=== PATIENT | female | born 1930 | race Caucasian/White ===

== ENCOUNTER 2020-03-22 08:39 | Observation (INO) | payer MEDICARE ==
[2020-03-22] MEDS ORDERED: Acetaminophen 500 MG TAB ONE (09:15)
--- NOTE | 2020-03-22 09:23 | RAD ---
Exam: Right elbow 2 views: HISTORY: Injury from a fall with pain COMPARISON: None FINDINGS: Diffuse bone demineralization. No evidence for fracture, dislocation, or other significant acute osseous abnormality. IMPRESSION: No significant acute process.
--- NOTE | 2020-03-22 09:33 | RAD ---
RIGHT HIP 2 VIEWS: Date: 03/22/2020 INDICATION: History of fall with right hip pain. COMPARISON: None. 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 No displaced fracture is evident. IMPRESSION: No acute osseous abnormality. POS: BH
--- NOTE | 2020-03-22 09:42 | RAD ---
RIGHT WRIST 3 VIEWS: Date: 03/22/2020 INDICATION: History of fall with right wrist pain. COMPARISON: None. FINDINGS: There is diffuse osteopenia. There is a heavily comminuted interarticular dorsally angulated, dorsall y displaced distal radial fracture. There is a nondisplaced ulnar styloid base fracture. 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 IMPRESSION: Distal both bone right forearm fracture as above. POS: BH
[2020-03-22] MEDS ORDERED: Lidocaine 4% Topical Sol 50 ML BOT ONE (10:41)
[2020-03-22] MEDS ORDERED: Lidocaine 1% (PF) 30 ML VIAL ONE ×2 (10:42→13:18)
[2020-03-22] MEDS ORDERED: Fentanyl 100 MCG/2 ML VIAL ONE ×2 (10:48→11:27)
[2020-03-22] MEDS ORDERED: Midazolam HCl 5 mg/ml Vial ONE (11:20)
--- NOTE | 2020-03-22 12:05 | RAD ---
XR Wrist 3 Rt View STANDARD History: Reduction Comparison: Radiograph same day Findings: Slight improved alignment intra-articular distal radius fracture with lateral displacement of the radial styloid 1 cm. Nondisplaced ulnar styloid fracture. Mild scapholunate widening. There continues to be dorsal displacement 1 cm. Impression: Continued dorsal lateral displacement of the intra-articular distal radius fracture with secondary foreshortening.
[2020-03-22 13:20] LABS: #Basophils 0.1 thou/uL (0.0-0.2); #Eosinphils 0.1 thou/uL (0.0-0.7); #Monocytes 0.9 thou/uL (0.11-0.59); #Neutrophils 7.7 thou/uL (1.40-6.50); %Basophils 0.6 % (0.0-1.0); %Eosinophils 0.7 % (0.0-10.0); %Lymphocytes 31.1 % (21.0-51.0); %Monocytes 7.4 % (0.0-10.0); %Neutrophils 60.2 % (42.0-75.0); Hemoglobin 12.5 g/dL (12.0-16.0); Mean Corpuscular HGB CONC 33.4 g/dL (32.0-36.0); Mean Corpuscular Hemoglobin 31.5 pg (27.0-31.0); Mean Corpuscular Volume 94.6 fL (78.0-98.0); Mean Platelet Volume 7.8 fL (7.4-10.4); Platelet Count 327 thou/uL (130-400); RBC Distribution Width 12.1 % (11.5-14.5); Red Blood Cell (RBC) Count 3.97 mill/uL (4.20-5.40); White Blood Cell (WBC) Count 12.7 thou/uL (4.8-10.8)
[2020-03-22] MEDS ORDERED: Dextrose 5% in Water 1,000 ML IV PRN (13:36)
[2020-03-22] MEDS ORDERED: Dextrose 50% Abboject 50 ML SYRINGE SLOW IVP PRN (13:36)
--- NOTE | 2020-03-22 13:39 | RAD ---
Exam: Chest one view HISTORY:Preoperative exam. Comparison: None FINDINGS: Cardiac silhouette: Normal Aorta: Unremarkable Pulmonary vessels: Normal Costophrenic angles: Clear LUNGS: Mass in the right lower lobe and left midlung, incompletely evaluated. Pneumothorax: None Osseous abnormalities: None IMPRESSION: Bilateral lung parenchymal masses. Postcontrast chest CT is recommended Results study discussed with Mike Arevalo 03/22/2020 at 1335 hours Code CR
[2020-03-22 13:41] LABS: Magnesium 1.8 mg/dL (1.6-2.6); Phosphorus 3.1 mg/dL (2.3-4.7)
[2020-03-22] MEDS ORDERED: Ondansetron PF 4 MG/2 ML Vial IVP PRN (13:44)
[2020-03-22] MEDS ORDERED: Morphine 2 MG/ML VIAL SLOW IVP PRN (13:44)
[2020-03-22] MEDS ORDERED: Sodium Chloride 0.9% 1,000 ML IV SCH (13:45)
[2020-03-22] MEDS ORDERED: Cyclobenzaprine 10 MG TAB PO PRN (13:46)
[2020-03-22] MEDS ORDERED: traMADol HCl 50 MG TAB PO PRN (13:47)
[2020-03-22] MEDS ORDERED: Acetaminophen 500 MG TAB PO SCH (14:00)
[2020-03-22] MEDS ORDERED: Ibuprofen 200 MG TAB PO PRN (14:14)
[2020-03-22] MEDS ORDERED: Magnesium 2 GM/50 ML 2 GM in Premix Bag 1 BAG IVPB SCH (14:15)
[2020-03-22 14:51] LABS: ALT (SGPT) 15 U/L (8-55); AST (SGOT) 18 U/L (5-34); Albumin 3.9 g/dL (3.4-4.8); Alkaline Phosphatase 77 U/L (40-110); Anion Gap 15 mmol/L (10-20); BUN (Urea Nitrogen) 12 mg/dL (9.8-20.1); Bilirubin, Total 0.4 mg/dL (0.2-1.2); Calc. Creatinine Clearance 0 mL/min (70-130); Calcium 9.1 mg/dL (7.8-10.44); Carbon Dioxide 25 mmol/L (23-31); Chloride 103 mmol/L (98-107); Estimated GFR-MDRD 76; Globulin 2.9 g/dL (2.4-3.5); Glucose 85 mg/dL (83-110); Potassium 3.6 mmol/L (3.5-5.1); Protein, Total 6.8 g/dL (6.0-8.3); Sodium 139 mmol/L (136-145)
--- NOTE | 2020-03-22 15:03 | RAD ---
XR Wrist Rt 2 View History: Post reduction Comparison: Radiograph same day Findings: Slight improved lateral displacement and dorsal angulation and displacement of the distal r adius fracture. Impression: Slightly improved alignment with continued lateral and dorsal displacement and secondary foreshortening.
[2020-03-22] MEDS ORDERED: Famotidine 20 MG TAB PO SCH (21:00)
[2020-03-22] MEDS ORDERED: Senokot S 8.6-50 MG TAB PO SCH (21:00)
[2020-03-23] MEDS ORDERED: Polyethylene Glycol 3350 17 GM Packet PO SCH (09:00)
--- NOTE | 2020-03-26 09:41 | OP ---
DATE OF PROCEDURE: 03/22/2020 LOCATION: Emergency room, [facility]. PREOPERATIVE DIAGNOSIS: Right displaced distal radius fracture. POSTOPERATIVE DIAGNOSIS: Right displaced distal radius fracture. PROCEDURE PERFORMED: Closed reduction under hematoma block of right distal radius. ANESTHESIA: Hematoma block. TOURNIQUET: Zero. COMPLICATIONS: None. DRAINS: None. SPECIMEN: None. BRIEF INDICATIONS: The patient is an 89-year-old lady, status post ground level fall, in which she sustained a displaced right distal radius fracture with complete displacement of the distal segment from the shaft and significant dorsal angulation. An attempt was made at closed reduction by the emergency room staff. However, this proved to be unsuccessful, and as such, Orthopedic consultation requested. Due to the risk of her median nerve, given the current displacement and the fact that she has a full stomach, I opted to proceed with hematoma block and attempt a closed reduction just to temporize and then we can see her in followup to discuss whether formal surgical intervention is required. DESCRIPTION OF PROCEDURE: After discussion with the patient including risks and benefits, we decided to proceed with hematoma block. This was done with a posterior Betadine prep and then injection of 5 mL of 1% lidocaine local. A minor flash of blood did come from the fracture site itself, however, it was not very impressive and the patient did have a somewhat incomplete hematoma block. Given that she did have some comfort, I did proceed with the reduction. This was done with longitudinal traction, minor recreation of the deformity and then bringing the hand and wrist into full length, bringing it into pronation and palmar flexion. Crepitation could be felt during the course of this reduction. She was then placed in a very well-padded sugar-tong splint. Followup x-rays were obtained that showed taoist of placement of the articular segment on top of the shaft, but still with residual dorsal tilt secondary to the comminution of the dorsal cortex of the distal radius. There was preservation of radial length and radial inclination. The patient was allowed to be discharged from the emergency room after the splint had fully hardened with advice to follow up in my office in the next week for re-evaluation and followup x-ray. Job ID: [id number]
--- NOTE | 2020-03-26 09:45 | CON ---
DATE OF CONSULTATION: 03/22/2020 REQUESTING PHYSICIAN: Dr. Mena. BRIEF HISTORY OF PRESENT ILLNESS: Vanessa is a pleasant 89-year-old right-hand dominant lady who was examined in the emergency room at [facility]. She reports earlier on this day of evaluation she sustained a ground-level fall at home, landed on her outstretched right wrist. She presented with complaint of right wrist pain and deformity. X-rays were obtained, that showed a distal radius fracture with complete dorsal displacement and dorsal angulation. An attempt was made at closed reduction; however, this proved to be unsuccessful, and as such, orthopedic consultation requested. PAST MEDICAL HISTORY: Remarkable for: 1. Hyperlipidemia. 2. Hypertension. PAST SURGICAL HISTORY: Negative. MEDICATIONS: Simvastatin. ALLERGIES: CODEINE. FAMILY HISTORY: Noncontributory for this fracture. REVIEW OF SYSTEMS: No recent fevers, chills, or sweats. Denies chest pain, cough, or shortness of breath. Denies numbness, tingling, or weakness in her extremities. PHYSICAL EXAMINATION: VITAL SIGNS: The patient is found to have a temperature of 98.7, heart rate of 93, respiratory rate of 18, and blood pressure 165/84. HEENT: Atraumatic and normocephalic. HEART: Regular rate and rhythm without murmur. LUNGS: Clear to auscultation bilaterally with good breath sounds. CHEST WALL: Nontender. EXTREMITIES: The right upper extremity remarkable for an atraumatic elbow. The wrist with a very obvious dinner-fork deformity. She does have intact sensation in the radial, median, and ulnar distributions. She has 2+ radial pulses. X-RAYS: Two-view x-ray of the wrist after an attempt to closed reduction shows a displaced distal radius fracture with dorsal angulation. Procedure today, a closed reduction was performed under a hematoma block, a separate note was dictated. ASSESSMENT AND PLAN: An 89-year-old lady status post fall on outstretched right hand, sustaining a distal radius fracture with displacement, now with reduction, but with a still a dorsal angulation. Neither she has been splinted, we will allow her to be discharged home. I will see her back in the office in about 1 week's time for re-evaluation. Job ID: [id number]
== END 2020-03-22 16:57 | disposition home or self-care (01) ==
LOC: ERS 08:39 → ERHOLD 13:03
PROVIDERS: ADMIT Surgery; ATTEND Surgery
PROC: 0PSHXZZ Reposition Right Radius, External Approach (ICD-10-PCS; principal; 2020-03-22)
DX: S52.571A Other intraarticular fracture of lower end of right radius, initial encounter for closed fracture (principal); S52.614A Nondisplaced fracture of right ulna styloid process, initial encounter for closed fracture; M85.88 Other specified disorders of bone density and structure, other site; M18.11 Unilateral primary osteoarthritis of first carpometacarpal joint, right hand; M16.11 Unilateral primary osteoarthritis, right hip; E78.5 Hyperlipidemia, unspecified; I10 Essential (primary) hypertension; Z88.5 Allergy status to narcotic agent; W18.30XA Fall on same level, unspecified, initial encounter; Y92.009 Unspecified place in unspecified non-institutional (private) residence as the place of occurrence of the external cause
CPT/HCPCS: 25605; 36415; 71045; 80053; 83735; 84100; 85025; 93005; 96360; J2001; J2250; J3010